=== PATIENT | female | born 1995 | race American Indian/Alaskan Native ===

== ENCOUNTER 2018-03-24 15:48 | Emergency (ER) | payer MEDICAID ==
[2018-03-24 16:52] LABS: Bilirubin,Urine NEG (Negative); Blood,Urine MOD (Negative); Color,Urine Yellow (Yellow); HCG Qualitative,Urine Negative (Negative); Protein,Urine <15 mg/dL mg/dL (Negative); Urobilinogen,Urine < 2.0 mg/dL (<2.0)
[2018-03-24] MEDS ORDERED: ZITHROMAX PO ONE (21:59)
[2018-03-24] MEDS ORDERED: XYLOCAINE 1% MPF 5 mL INFILTRATI ONE (21:59)
[2018-03-24] MEDS ORDERED: ROCEPHIN ONE (21:59)
[2018-03-24] MEDS ORDERED: ROCEPHIN IM ONE (21:59)
[2018-03-24] MEDS ORDERED: XYLOCAINE 1% MPF 5 mL ONE (21:59)
--- NOTE | 2018-03-24 22:23 | Emergency Department Report ---
ED Female HPI - General Chief complaint: Urogenital-Female Stated complaint: BLOOD IN URINE Time Seen by Provider: 03/24/18 21:20 Source: patient Mode of arrival: Ambulatory Limitations: No Limitations - History of Present Illness Initial comments: Patient is a 22-year-old female who presented initially for dysuria frequency urgency on provider interview states positive contact with [facility] Department 3 days ago was advised to seek. Treatment for chlamydia states vaginal irritation dyspareunia white thick discharge malodorous LMP 1 week ago is no fever no chills no nausea vomiting no back pain No vaginal bleeding at this time MD Complaint: vaginal discharge, dysuria, possible STD Onset/Timin -: days(s) Location: suprapubic Radiation: suprapubic Severity: moderate Severity scale (0 -10): 4 Quality: other (stinging foul smell ) Consistency: intermittent Improves with: none Worsens with: urination, other (intercourse ) Are you Now?: No Last Menstrual Period: 03/17/18 EDC: 12/22/18 Associated Symptoms: vaginal discharge, dysuria, hematuria - Related Data Sexually active: Yes : 0 Para: 0 A: 0 Previous Rx's Medication Instructions Recorded Last Taken Type Fluconazole [Diflucan TAB] 150 mg PO ONCE #1 tablet 03/24/18 Unknown Rx Nitrofurantoin Macrocrystal 100 mg PO BID #14 capsule 03/24/18 Unknown Rx [Macrodantin] metroNIDAZOLE [Flagyl] 500 mg PO Q12HR #20 tab 03/24/18 Unknown Rx Allergies Allergy/AdvReac Type Severity Reaction Status Date / Time No Known Allergies Allergy Unverified 03/24/18 16:16 ED Review of Systems ROS: Stated complaint: BLOOD IN URINE Other details as noted in HPI Constitutional: denies: chills, fever Eyes: denies: eye pain, eye discharge, vision change ENT: denies: ear pain, throat pain Respiratory: denies: cough, shortness of breath, wheezing Cardiovascular: denies: chest pain, palpitations Endocrine: no symptoms reported Gastrointestinal: denies: abdominal pain, nausea, diarrhea Genitourinary: dysuria, frequency, hematuria, discharge. denies: urgency Musculoskeletal: denies: back pain, joint swelling, arthralgia Skin: denies: rash, lesions Neurological: denies: headache, weakness, paresthesias Psychiatric: denies: anxiety, depression Hematological/Lymphatic: denies: easy bleeding, easy bruising ED Past Medical Hx - Past Medical History Additional medical history: BRONCHITITS HYPOTHYROIDISM - Surgical History Past Surgical History?: No - Social History Smoking Status: Current Every Day Smoker Substance Use Type: None - Medications Home Medications: Home Medications Medication Instructions Recorded Confirmed Last Taken Type Fluconazole [Diflucan TAB] 150 mg PO ONCE #1 tablet 03/24/18 Unknown Rx Nitrofurantoin Macrocrystal 100 mg PO BID #14 capsule 03/24/18 Unknown Rx [Macrodantin] metroNIDAZOLE [Flagyl] 500 mg PO Q12HR #20 tab 03/24/18 Unknown Rx ED Physical Exam - General Limitations: No Limitations General appearance: alert, in no apparent distress - Head Head exam: Present: atraumatic, normocephalic - Eye Eye exam: Present: normal appearance - ENT ENT exam: Present: mucous membranes moist - Neck Neck exam: Present: normal inspection - Respiratory Respiratory exam: Present: normal lung sounds bilaterally. Absent: respiratory distress - Cardiovascular Cardiovascular Exam: Present: regular rate, normal rhythm. Absent: systolic murmur, diastolic murmur, rubs, gallop - GI/Abdominal GI/Abdominal exam: Present: soft, normal bowel sounds - Rectal Rectal exam: Present: deferred - External exam: Present: normal external exam Speculum exam: Present: erythema, vaginal discharge (white green thick malodorous). Absent: cervical discharge, vaginal bleeding, foreign body, tissue , laceration Bi-manual exam: Present: cervical motion tendernes. Absent: adnexal tenderness , adnexal mass, uterine enlargement, uterine tenderness - Extremities Exam Extremities exam: Present: normal inspection - Back Exam Back exam: Present: normal inspection - Neurological Exam Neurological exam: Present: alert, oriented X3 - Psychiatric Psychiatric exam: Present: normal affect, normal mood - Skin Skin exam: Present: warm, dry, intact, normal color. Absent: rash ED Course Vital Signs 03/24/18 16:16 Temperature 98.4 F Pulse Rate 79 Respiratory 16 Rate Blood Pressure 117/74 O2 Sat by Pulse 100 Oximetry ED Medical Decision Making - Lab Data Laboratory Tests 03/24/18 Unknown Urine Color Yellow Urine Turbidity Clear Urine pH 5.0 Ur Specific [place] 1.026 Urine Protein <15 mg/dl Urine Glucose (UA) Neg Urine Ketones Neg Urine Blood Mod Urine Nitrite Neg Urine Bilirubin Neg Urine Urobilinogen < 2.0 Ur Leukocyte Esterase Lg Urine WBC (Auto) 7.0 H Urine RBC (Auto) 12.0 U Epithel Cells (Auto) 12.0 Urine Yeast (Budding) Few Urine HCG, Qual Negative - Medical Decision Making There is no CVA tenderness patient denies flow problems no back pain or flank pain wet prep positive for yeast noticed CMT on exam erythema and whitish green thick discharge malodorous urine positive for leuks GC chlamydia pending given possible STI contact to treat for STI UTI and BV vaginal sarah . Patient will follow-up with health Department for HSV HIV screening patient treated with Rocephin and Zithromax here will be DC'd home and Diflucan Flagyl by mouth Macrobid. HCG is negative patient verbalizes understanding and agreement was signed patient DC'd to home in stable condition at this time Critical care attestation.: If time is entered above; I have spent that time in minutes in the direct care of this critically ill patient, excluding procedure time. ED Disposition Clinical Impression: STI (sexually transmitted infection), Vaginal candidiasis UTI (urinary tract infection) Qualifiers: Urinary tract infection type: acute cystitis Hematuria presence: with hematuria Qualified Code(s): N30.01 - Acute cystitis with hematuria Disposition: DC-01 TO HOME OR SELFCARE Is pt being admited?: No Does the pt Need Aspirin: No Condition: Good Instructions: Sexually Transmitted Diseases (ED), Urinary Tract Infection in Women (ED), Vulvovaginal Candidiasis (ED) Additional Instructions: follow up with health department for HSV and HIV screening Prescriptions: Fluconazole [Diflucan TAB] 150 mg PO ONCE #1 tablet metroNIDAZOLE [Flagyl] 500 mg PO Q12HR #20 tab Nitrofurantoin Macrocrystal [Macrodantin] 100 mg PO BID #14 capsule Referrals: [facility] [Outside] - 3-5 Days Forms: Work/School Release Form(ED)
[2018-03-24 22:39] VITALS: BP 120/70
== END 2018-03-24 22:39 | disposition home or self-care (01) ==
LOC: ED 15:48
DX: N30.01 Acute cystitis with hematuria (principal); B37.3 Candidiasis of vulva and vagina; A64 Unspecified sexually transmitted disease; F17.200 Nicotine dependence, unspecified, uncomplicated
CPT/HCPCS: 81001; 81025; 87210; 87591; 96372; 99284; J0696

== ENCOUNTER 2019-04-11 10:57 | Emergency (ER) | payer MEDICAID, OTHER ==
[2019-04-11 12:00] LABS: Bilirubin,Urine NEG (Negative); Blood,Urine MOD (Negative); Color,Urine Yellow (Yellow); Mucus,Urine 3+ /HPF; Protein,Urine <15 mg/dL mg/dL (Negative); Urobilinogen,Urine < 2.0 mg/dL (<2.0)
[2019-04-11 12:08] LABS: HCG Qualitative,Urine Negative (Negative)
--- NOTE | 2019-04-11 12:21 | Emergency Department Report ---
ED General Adult HPI - General Chief complaint: Weakness Stated complaint: DISCHARGE/FEVER Source: patient Mode of arrival: Ambulatory Limitations: No Limitations - History of Present Illness Initial comments: 23 yo AF states that she has been having CP with and without cough, white vaginal discharge and fever for a week. She also states that her chest discomfort feels similar to her recent episodes with asthma. -: Gradual Location: chest, abdomen Severity scale (0 -10): 9 Quality: sharp Consistency: constant Improves with: none Worsens with: none Associated Symptoms: denies other symptoms - Related Data Previous Rx's Medication Instructions Recorded Last Taken Type Fluconazole [Diflucan TAB] 150 mg PO ONCE #1 tablet 03/24/18 Unknown Rx Nitrofurantoin Macrocrystal 100 mg PO BID #14 capsule 03/24/18 Unknown Rx [Macrodantin] metroNIDAZOLE [Flagyl] 500 mg PO Q12HR #20 tab 03/24/18 Unknown Rx DOXYCYCLINE Hyclate [Vibramycin 100 mg PO Q12HR 14 Days #28 capsule 04/11/19 Unknown Rx CAP] metroNIDAZOLE [Flagyl TAB] 500 mg PO Q12HR 10 Days #20 tab 04/11/19 Unknown Rx Allergies Allergy/AdvReac Type Severity Reaction Status Date / Time No Known Allergies Allergy Verified 04/11/19 10:59 ED Review of Systems ROS: Stated complaint: DISCHARGE/FEVER Other details as noted in HPI ED Past Medical Hx - Past Medical History Previous Medical History?: Yes Additional medical history: BRONCHITITS HYPOTHYROIDISM - Surgical History Past Surgical History?: No - Social History Smoking Status: Never Smoker Substance Use Type: None - Medications Home Medications: Home Medications Medication Instructions Recorded Confirmed Last Taken Type Fluconazole [Diflucan TAB] 150 mg PO ONCE #1 tablet 03/24/18 Unknown Rx Nitrofurantoin Macrocrystal 100 mg PO BID #14 capsule 03/24/18 Unknown Rx [Macrodantin] metroNIDAZOLE [Flagyl] 500 mg PO Q12HR #20 tab 03/24/18 Unknown Rx DOXYCYCLINE Hyclate [Vibramycin 100 mg PO Q12HR 14 Days #28 capsule 04/11/19 Unknown Rx CAP] metroNIDAZOLE [Flagyl TAB] 500 mg PO Q12HR 10 Days #20 tab 04/11/19 Unknown Rx ED Physical Exam - General Limitations: No Limitations General appearance: alert, in no apparent distress - Head Head exam: Present: atraumatic, normocephalic - Eye Eye exam: Present: normal appearance - ENT ENT exam: Present: mucous membranes moist - Neck Neck exam: Present: normal inspection - Respiratory Respiratory exam: Present: normal lung sounds bilaterally. Absent: respiratory distress - Cardiovascular Cardiovascular Exam: Present: regular rate, normal rhythm. Absent: systolic murmur, diastolic murmur, rubs, gallop - GI/Abdominal GI/Abdominal exam: Present: soft, tenderness (RLQ and LLQ), normal bowel sounds - Rectal Rectal exam: Present: deferred - External exam: Present: normal external exam Speculum exam: Present: vaginal discharge (white) Bi-manual exam: Present: cervical motion tendernes (general tenderness appreciated upon exam) - Extremities Exam Extremities exam: Present: normal inspection - Back Exam Back exam: Present: normal inspection - Neurological Exam Neurological exam: Present: alert, oriented X3 - Psychiatric Psychiatric exam: Present: normal affect - Skin Skin exam: Present: warm ED Course Vital Signs 04/11/19 11:02 Temperature 98.4 F Pulse Rate 76 Respiratory 20 Rate Blood Pressure 117/89 O2 Sat by Pulse 100 Oximetry ED Medical Decision Making - Lab Data Result diagrams: 04/11/19 16:18 - Medical Decision Making 23 yo AF states that she has been having CP with and without cough, white vaginal discharge and fever for a week. Chest x-ray was ordered and results are listed below. Pt was given a Decadron injection and a nebulizer treatment. Pt stated that she felt a lot better after the nebulizer treatment. An albuterol inhaler was provided to patient to use for asthmatic episodes upon discharge. Upon pelvic exam general tenderness was noted and a white discharge was seen. Pt was given Rocephin injection in clinic, Doxycycline to take home, and Metronidazole. Pt was instructed to take medication as prescribed and to f/u with OBGYN for vaginal synptoms and PCP for asthma; see ER if symptoms worsen or new severe symptoms arise. Patient: APRIL KING MR#: [id number] : 1995 Acct:[id number] Age/Sex: 23 / F ADM Date: 04/11/19 Loc: ED Attending Dr: Ordering Physician: BETTY NEGRETE PA-C Date of Service: 04/11/19 Procedure(s): XR chest routine 2V Accession Number(s): [id number] cc: BETTY NEGRETE PA-C Fluoro Time In Minutes: CHEST 2 VIEWS INDICATION: CP. Generalized chest pain for one day COMPARISON: None FINDINGS: Support devices: None. Heart: Within normal limits. Lungs/pleura: No acute air space or interstitial disease. No pneumothorax. Additional findings: None. IMPRESSION: 1. No acute findings. Signer Name: Olaf Gilbert MD Signed: 04/11/2019 12:52 PM Workstation Name: [id number] Transcribed By: SAUL Dictated By: Olaf Gilbert MD Electronically Authenticated By: Olaf Gilbert MD Signed Date/Time: 04/11/19 1252 Critical care attestation.: If time is entered above; I have spent that time in minutes in the direct care of this critically ill patient, excluding procedure time. ED Disposition Clinical Impression: PID (acute pelvic inflammatory disease), Asthma, Bacterial vaginosis Disposition: -01 TO HOME OR SELFCARE Is pt being admited?: No Does the pt Need Aspirin: No Condition: Stable Instructions: Pelvic Inflammatory Disease (ED), Asthma (ED), Bacterial Vaginosis (ED) Additional Instructions: Pt was given Rocephin injection in clinic, Doxycycline to take home, and Metronidazole. Pt was instructed to take medication as prescribed and to f/u with OBGYN for vaginal synptoms and PCP for asthma; see ER if symptoms worsen or new severe symptoms arise. Prescriptions: metroNIDAZOLE [Flagyl TAB] 500 mg PO Q12HR 10 Days #20 tab DOXYCYCLINE Hyclate [Vibramycin CAP] 100 mg PO Q12HR 14 Days #28 capsule Referrals: PRIMARY CAREMD [Primary Care Provider] - 3-5 Days Forms: STI Treatment and Prevention Time of Disposition: 18:30
--- NOTE | 2019-04-11 12:56 | XRay Report ---
CHEST 2 VIEWS INDICATION: CP. Generalized chest pain for one day COMPARISON: None FINDINGS: Support devices: None. Heart: Within normal limits. Lungs/pleura: No acute air space or interstitial disease. No pneumothorax. Additional findings: None. IMPRESSION: 1. No acute findings. Signer Name: Olaf Gilbert MD Signed: 04/11/2019 12:52 PM Workstation Name: [id number]
[2019-04-11] MEDS ORDERED: DUONEB *Not for PRN Use IH ONE (14:06)
[2019-04-11] MEDS ORDERED: DECADRON PO ONE (14:08)
[2019-04-11 16:40] LABS: Basophils % (Auto) 0.2 % (0.0-1.8); Eosinophils % (Auto) 0.6 % (0.0-4.3); Hematocrit 37.5 % (30.3-42.9); Hemoglobin 12.9 gm/dl (10.1-14.3); Lymphocytes # (Auto) 1.5 K/mm3 (1.2-5.4); Lymphocytes % (Auto) 20.1 % (13.4-35.0); Mean Corpuscular HGB Conc 35 % (30-34); Mean Corpuscular Volume 88 fl (79-97); Monocytes # (Auto) 0.3 K/mm3 (0.0-0.8); Platelet Count 198 K/mm3 (140-440); Red Blood Count 4.26 M/mm3 (3.65-5.03); Red Cell Distribution Width 13.9 % (13.2-15.2)
[2019-04-11] MEDS ORDERED: ROCEPHIN IM ONE (18:28)
[2019-04-11] MEDS ORDERED: XYLOCAINE 1% MPF 5 mL INFILTRATI ONE (18:28)
[2019-04-11 18:41] VITALS: BP 132/83
== END 2019-04-11 18:40 | disposition home or self-care (01) ==
LOC: ED 10:57
DX: N73.0 Acute parametritis and pelvic cellulitis (principal); J45.909 Unspecified asthma, uncomplicated; N76.0 Acute vaginitis
CPT/HCPCS: 36415; 71046; 81001; 81025; 85025; 87210; 87591; J0696; J8540; 96372